=== PATIENT | male | born 1945 | race Hispanic/Latino ===

== ENCOUNTER 2016-08-09 09:02 | Emergency (ER) | payer MEDICARE, BC ==
[2016-08-09 09:02] VITALS: BMI 27.7
[2016-08-09 09:15] VITALS: RESP 16; TEMP 98.4
--- NOTE | 2016-08-09 09:43 | ED PDOC ---
Arrival/HPI - General Chief Complaint: Allergic Reaction Time Seen by Provider: 08/09/16 09:28 Historian: Patient - History of Present Illness Narrative History of Present Illness (Text): 08/09/16 09:41 71yr old male presents today with rash to the arms bilaterally and neck. pt denies fever/chills. pt states he woke up tuesday with feeling of swelling to the upper up and rash to 5th finger of the left hand. pt states he then developed rash on forearms and right upper arm. pt states he applied benadryl cream to rash with improvement in pruritis. pt denies cp or sob. denies facial swelling at present time. denies difficulty breathing or swallowing. Patient denies new soaps or lotions or detergents or perfume/colognes. Denies any new medications. no other complaints. Time/Duration: Other (4 days) Symptom Onset: Gradual Symptom Course: Unchanged Quality: Other (no pain) Past Medical History - Provider Review Nursing Documentation Reviewed: Yes - Travel History Have you recently traveled outside [place] w/in the past 3 mons?: No - Infectious Disease Hx of Infectious Diseases: None - Tetanus Immunization Tetanus Immunization: Unknown - Cardiac Hx Hypertension: Yes - Pulmonary Hx Respiratory Disorders: No - Neurological Hx Neurological Disorder: No Hx Paralysis: No - HEENT Hx HEENT Disorder: No - Renal Hx Renal Disorder: No - Endocrine/Metabolic Hx Endocrine Disorders: No - Hematological/Oncological Hx Blood Disorders: No Hx Blood Transfusions: No Hx Blood Transfusion Reaction: No - Musculoskeletal/Rheumatological Hx Musculoskeletal Disorders: No - Gastrointestinal Hx Gastroesophageal Reflux: Yes - Genitourinary/Gynecological Hx Genitourinary Disorders: No - Psychiatric Hx Psychophysiologic Disorder: No Hx Emotional Abuse: No Hx Physical Abuse: No Hx Substance Use: No - Surgical History Hx Cholecystectomy: Yes Other/Comment: hernia repair, back surgery - Anesthesia Hx Anesthesia: Yes - Suicidal Assessment Feels Threatened In Home Enviroment: No Family/Social History - Physician Review Nursing Documentation Reviewed: Yes Family/Social History: Unknown Family HX Smoking Status: Never Smoked Hx Alcohol Use: No Hx Substance Use: No Hx Substance Use Treatment: No Allergies/Home Meds Allergies/Adverse Reactions: Allergies No Known Allergies Allergy (Verified 08/09/16 09:10) Home Medications: Home Meds Medication Instructions Recorded Confirmed Irbesartan [Avapro] 300 mg PO DAILY 04/22/14 08/09/16 Omeprazole 20 mg PO DAILY 01/09/16 08/09/16 Review of Systems - Review of Systems Constitutional: absent: Fatigue, Fevers ENT: absent: Sore Throat, Sinus Congestion Respiratory: absent: SOB, Cough Cardiovascular: absent: Chest Pain, Palpitations Gastrointestinal: absent: Abdominal Pain, Nausea, Vomiting Musculoskeletal: absent: Arthralgias Skin: Rash, Pruritis Neurological: absent: Headache, Dizziness Psychiatric: absent: Anxiety, Depression Physical Exam Vital Signs Reviewed: Yes Vital Signs Temp Pulse Resp BP Pulse Ox 08/09/16 09:13 98.4 F 63 16 150/89 97 Temperature: Afebrile Blood Pressure: Normal Pulse: Regular Respiratory Rate: Normal Appearance: Positive for: Well-Appearing, Non-Toxic, Comfortable Pain Distress: None Mental Status: Positive for: Alert and Oriented X 3 - Systems Exam Head: Present: Atraumatic. No: Swelling Mouth: Present: Moist Mucous Membranes, Normal Lips, Normal Tounge. No: Drooling, Trismus Pharnyx: Present: Normal. No: ERYTHEMA, EXUDATE, Peritonsilar Swelling, Uvular Deviation, Muffled/Hoarse Voice, Strider, Soft Palate/Uvular Edema Nose (External): Present: Atraumatic Nose (Internal): Present: Normal Inspection Neck: Present: Normal Range of Motion Respiratory/Chest: Present: Clear to Auscultation Cardiovascular: Present: Regular Rate and Rhythm, Normal S1, S2. No: Murmurs Abdomen: No: Tenderness Upper Extremity: Present: Normal ROM Lower Extremity: Present: Normal ROM Neurological: Present: GCS=15, Speech Normal Skin: Present: Warm, Dry, Rashes, Normal Color, Other (blanching erythematous plaques noted to the volar aspect of the forearms bilaterally and few erythematous plaques around the neck. ) Psychiatric: Present: Alert, Oriented x 3 Medical Decision Making ED Course and Treatment: 08/09/16 10:09 Patient is nontoxic well-appearing in no distress with stable vital signs no angioedema. Lungs are clear to auscultation bilaterally there is no wheezing noted. The airway is patent pt denies pruritis at present time; will d/c home with benadryl and pepcid. and f/u with pmd tomorrow. pt driving home. I advised taking Benadryl every 6 hours as needed for itch. Advised patient to follow up with primary care physician within the next 2 days and return if symptoms worsen persist or if new symptoms develop Impression: Rash Benadryl every 6 hours as needed for itch Pepcid one tablet daily Follow up with the primary care physician tomorrow Return if symptoms worsen persist or if new symptoms develop: Shortness of breath, feeling of throat closing, difficulty speaking or any other concerning symptoms develop Disposition/Present on Arrival - Present on Arrival Any Indicators Present on Arrival: No History of DVT/PE: No History of Uncontrolled Diabetes: No Urinary Catheter: No History of Decub. Ulcer: No History Surgical Site Infection Following: None - Disposition Have Diagnosis and Disposition been Completed?: Yes Diagnosis: Rash Disposition: HOME/ ROUTINE Disposition Time: 09:43 Patient Plan: Discharge Condition: GOOD Discharge Instructions (ExitCare): Acute Rash (ED) Additional Instructions: Benadryl every 6 hours as needed for itch Pepcid one tablet daily Follow up with the primary care physician tomorrow Return if symptoms worsen persist or if new symptoms develop: Shortness of breath, feeling of throat closing, difficulty speaking or any other concerning symptoms develop Prescriptions: DiphenhydrAMINE [Benadryl] 25 mg PO Q6H #20 cap Famotidine [Pepcid] 20 mg PO DAILY #30 tab Referrals: Vinay Yu MD [Primary Care Provider] - Follow up with primary Maria Fernanda Macias MD [Staff Provider] - Follow up with primary
[2016-08-09 10:06] VITALS: BP 145/90; PULSE 65; O2SAT 95
== END 2016-08-09 10:04 | disposition home or self-care (01) ==
LOC: EDUNIT# 09:02 → ED 09:02
DX: R21 Rash and other nonspecific skin eruption (principal)

== ENCOUNTER 2018-06-01 16:28 | Outpatient (CLI) | payer MEDICARE, OTHER | END 2018-06-01 16:29 | disposition home or self-care (01) | LOC: RAD 16:28 ==